=== PATIENT | female | born 1940 | race Two or more races ===

== ENCOUNTER 2024-01-14 03:03 | Observation (INO) | payer MEDICARE, BC ==
--- NOTE | 2024-01-14 03:34 | ED ---
General Adult HPI - General Chief complaint: Neuro Symptoms/Deficit Stated complaint: TIA Time Seen by Provider: 01/14/24 03:10 Source: patient, EMS, RN notes reviewed, old records reviewed Limitations: no limitations - History of Present Illness Initial comments: Patient is an 83-year-old female who presents emergency department as a transfer from [facility] for neuro eval for TIA. Has a history of hypertension, hypothyroidism, hyperlipidemia, anxiety. Had an episode at approximately 8 PM last night which lasted for approximately 10 to 15 minutes. She was sitting at a computer and began having a strange feeling on the right side of her body. She stood up at that time began to walk but had some right- sided weakness and ended up falling to the floor next to her bed. She had a hard time standing up and around during this episode. States she felt in both her leg and her arm. EMS was called. Symptoms resolved by the time EMS arrived. Denies any other acute complaints or issues. Presents for further evaluation. Patient was worked up at [facility] and labs returned unremarkable. CT brain showed no obvious acute ischemic process. Physician at [place] recommended transfer for neurology evaluation over concern for TIA. Patient has not had recurrence of symptoms. Has no other acute complaints. Presents for further evaluation at this time. - Related Data Allergies Allergy/AdvReac Type Severity Reaction Status Date / Time No Known Allergies Allergy Verified 01/14/24 03:53 Review of Systems ROS Statement: Those systems with pertinent positive or pertinent negative responses have been documented in the HPI. Review of Systems: CONST: Denies fever EYES: Denies blurry vision ENT: Denies nasal congestion C/V: Denies Chest pain RESP: Denies shortness of breath GI: Denies abdominal pain : Denies dysuria SKIN: Denies rash. MSK: Denies joint pain. NEURO: Denies headache ROS Other: All systems not noted in ROS Statement are negative. General Exam - General Exam Comments Initial Comments: General: Appears in no acute distress. HEAD: Normal with no signs of head trauma. EYES: PERRLA, EOMI, conjunctiva normal, no discharge. Pupils are 3 mm and equal bilaterally. ENT: Hearing grossly intact, normal oropharynx. RESPIRATORY: Clear breath sounds bilaterally. No wheezes, rales, or rhonchi. C/V: Regular rate and rhythm. S1 and S2 auscultated, no edema, peripheral pulses 2+ and intact throughout ABD: Abd is soft, nontender, nondistended EXT: Normal range of motion, no obvious deformity SKIN: No rashes or lesions observed on exposed skin. NEURO: Alert and oriented x 4. Cranial nerves II-XII intact. No focal sensory or strength deficits. NIH is 0. GCS 15. Limitations: no limitations Course Vital Signs 01/14/24 03:13 Temperature 97.7 F Pulse Rate 72 Respiratory 18 Rate Blood Pressure 124/76 O2 Sat by Pulse 95 Oximetry Medical Decision Making - Medical Decision Making Was pt. sent in by a medical professional or institution (, PA, ELECTROLYTIC ETCHER, urgent care, hospital, or intermediate...) When possible be specific @ -Transferred from [facility] for neurology evaluation over concern for TIA. Did you speak to anyone other than the patient for history (EMS, parent, family, police, friend...)? What history was obtained from this source @ -No Did you review nursing and triage notes (agree or disagree)? Why? @ -I reviewed and agree with nursing and triage notes Were old charts reviewed (outside hosp., previous admission, EMS record, old EKG, old radiological studies, urgent care reports/EKG's, intermediate records)? Report findings @ -Reviewed [facility] chart including labs and CT results which showed unremarkable workup at the outside facility. Differential Diagnosis (chest pain, altered mental status, abdominal pain women, abdominal pain men, vaginal bleeding, weakness, fever, dyspnea, syncope, headache, dizziness, GI bleed, back pain, seizure, CVA, palpatations, mental health, musculoskeletal)? @ -Differential CVA Ischemic stroke, hemorrhagic stroke, brain tumor, atypical migraine, Wernicke's encephalopathy, seizure, multiple sclerosis, meningitis, encephalitis, hypog lycemia, Guillain-Pisano, electrolytes disturbance, myasthenia gravis.... This is not meant to be an all-inclusive list EKG interpreted by me (3pts min.). @ -As above X-rays interpreted by me (1pt min.). @ -None done CT interpreted by me (1pt min.). @ -None done. Already completed by [facility]. U/S interpreted by me (1pt. min.). @ -None done What testing was considered but not performed or refused? (CT, X-rays, U/S, labs)? Why? @ -Considered CT however already completed by [facility]. What meds were considered but not given or refused? Why? @ -Considered administering aspirin however patient already received from [facility] prior to transfer. Did you discuss the management of the patient with other professionals (professionals i.e. , PA, ELECTROLYTIC ETCHER, lab, RT, psych nurse, director of social media marketing, maturity checker, teacher, correction officer reformatory, rn field case manager)? Give summary @ -I spoke with admitting team [facility] who accepted the admission. Was smoking cessation discussed for >3mins.? @ -No Was critical care preformed (if so, how long)? @ -No Were there social determinants of health that impacted care today? How? (Homelessness, low income, unemployed, alcoholism, drug addiction, transportation, low edu. Level, literacy, decrease access to med. care, fpc, rehab)? @ -No Was there de-escalation of care discussed even if they declined (Discuss DNR or withdrawal of care, Hospice)? DNR status @ -No What co-morbidities impacted this encounter? (DM, HTN, Smoking, COPD, CAD, Cancer, CVA, ARF, Chemo, Hep., AIDS, mental health diagnosis, sleep apnea, morbid obesity)? @ -None Was patient admitted / discharged? Hospital course, mention meds given and route, prescriptions, significant lab abnormalities, going to OR and other pertinent info. @ -Patient presents for TIAs evaluation. Had right-sided weakness at home with a low risk fall with no obvious injuries. Symptoms resolved by the time EMS arrived. Workup at [facility] unremarkable. NIH remains 0. Did not receive thrombolytic therapy as patient is not a candidate due to low NIH and risks for outweigh the benefits. She was transferred here for neurology evaluation. She already received aspirin. Will repeat laboratory studies and admit the patient to observation telemetry. Patient was in agreement this plan. NIH remains 0 at this time. She is resting comfortably. Vital signs are within acceptable limits. Repeat labs returned unremarkable including undetectable troponin. EKG showed no signs of acute ischemia. Patient will be admitted at this time. I spoke with the admitting physician, [facility] who accepted the admission. Neurology consulted. Undiagnosed new problem with uncertain prognosis? @ -No Drug Therapy requiring intensive monitoring for toxicity (Heparin, Nitro, Insu daryl, Cardizem)? @ -No Were any procedures done? @ -No Diagnosis/symptom? @ -TIA Acute, or Chronic, or Acute on Chronic? @ -Acute Uncomplicated (without systemic symptoms) or Complicated (systemic symptoms)? @ -Complicated Side effects of treatment? @ -No Exacerbation, Progression, or Severe Exacerbation? @ -No Poses a threat to life or bodily function? How? (Chest pain, USA, RI, pneumonia, PE, COPD, DKA, ARF, appy, cholecystitis, CVA, Diverticulitis, Homicidal, Suicidal, threat to staff... and all critical care pts) @ -Possibly, yes - Lab Data Result diagrams: 01/14/24 03:22 01/14/24 03:22 Lab Results 01/14/24 01/14/24 01/14/24 Range/Units 03:22 03:22 03:22 WBC 9.3 (3.8-10.6) k/uL RBC 5.09 (3.80-5.40) m/uL Hgb 15.2 (11.4-16.0) gm/dL Hct 45.0 (34.0-46.0) % MCV 88.3 (80.0-100.0) fL MCH 29.9 (25.0-35.0) pg MCHC 33.8 (31.0-37.0) g/dL RDW 13.6 (11.5-15.5) % Plt Count 206 (150-450) k/uL MPV 7.3 Neutrophils % 73 % Lymphocytes % 20 % Monocytes % 5 % Eosinophils % 1 % Basophils % 0 % Neutrophils # 6.8 (1.3-7.7) k/uL Lymphocytes # 1.8 (1.0-4.8) k/uL Monocytes # 0.5 (0-1.0) k/uL Eosinophils # 0.1 (0-0.7) k/uL Basophils # 0.0 (0-0.2) k/uL PT 10.7 (10.0-12.5) sec INR 1.0 (<1.2) APTT 28.1 (22.0-30.0) sec Sodium 135 L (137-145) mmol/L Potassium 4.2 (3.5-5.1) mmol/L Chloride 105 (98-107) mmol/L Carbon Dioxide 26 (22-30) mmol/L Anion Gap 4 mmol/L BUN 21 H (7-17) mg/dL Creatinine 0.58 (0.52-1.04) mg/dL Est GFR (CKD-EPI)AfAm >90 (>60 ml/min/1.73 sqM) Est GFR (CKD-EPI)NonAf 87 (>60 ml/min/1.73 sqM) Glucose 116 H (74-99) mg/dL Calcium 9.8 (8.4-10.2) mg/dL Total Bilirubin 0.6 (0.2-1.3) mg/dL AST 28 (14-36) U/L ALT 22 (4-34) U/L Alkaline Phosphatase 111 (38-126) U/L Creatine Kinase 44 (30-135) U/L Troponin I (0.000-0.034) ng/mL Total Protein 7.0 (6.3-8.2) g/dL Albumin 4.1 (3.5-5.0) g/dL 01/14/24 Range/Units 03:22 WBC (3.8-10.6) k/uL RBC (3.80-5.40) m/uL Hgb (11.4-16.0) gm/dL Hct (34.0-46.0) % MCV (80.0-100.0) fL MCH (25.0-35.0) pg MCHC (31.0-37.0) g/dL RDW (11.5-15.5) % Plt Count (150-450) k/uL MPV Neutrophils % % Lymphocytes % % Monocytes % % Eosinophils % % Basophils % % Neutrophils # (1.3-7.7) k/uL Lymphocytes # (1.0-4.8) k/uL Monocytes # (0-1.0) k/uL Eosinophils # (0-0.7) k/uL Basophils # (0-0.2) k/uL PT (10.0-12.5) sec INR (<1.2) APTT (22.0-30.0) sec Sodium (137-145) mmol/L Potassium (3.5-5.1) mmol/L Chloride (98-107) mmol/L Carbon Dioxide (22-30) mmol/L Anion Gap mmol/L BUN (7-17) mg/dL Creatinine (0.52-1.04) mg/dL Est GFR (CKD-EPI)AfAm (>60 ml/min/1.73 sqM) Est GFR (CKD-EPI)NonAf (>60 ml/min/1.73 sqM) Glucose (74-99) mg/dL Calcium (8.4-10.2) mg/dL Total Bilirubin (0.2-1.3) mg/dL AST (14-36) U/L ALT (4-34) U/L Alkaline Phosphatase (38-126) U/L Creatine Kinase (30-135) U/L Troponin I <0.012 (0.000-0.034) ng/mL Total Protein (6.3-8.2) g/dL Albumin (3.5-5.0) g/dL - EKG Data -: EKG Interpreted by Me EKG Comments: 12-lead Electrocardiogram Interpretation Note EKG was reviewed and interpreted by myself. 12-lead ECG performed at 0339 is interpreted by me as revealing normal sinus rhythm at a rate of 66 beats per minute. [place] is normal. NC interval is 171 ms, QRS is 75 ms, QTc is 442 ms.. There were no ST or T wave abnormalities to suggest myocardial ischemia or injury. R wave progression across the precordium was satisfactory. By my interpretation this EKG is non-diagnostic for acute ischemia. Disposition Clinical Impression: TIA (transient ischemic attack) Disposition: ADMITTED IP TO THIS HOSP Condition: Stable Time of Disposition: 03:33
[2024-01-14 03:35] LABS: Glucose,Whole Blood 112 mg/dL (70-110)
[2024-01-14] MEDS: ONDANSETRON 4 MG/2 ML VIAL IVP STA (03:54)
[2024-01-14] MEDS: SODIUM CHLORIDE 0.9% 1,000 ML IV STA (03:57)
[2024-01-14 04:11] LABS: Partial Thromboplastin Time 28.1 sec (22.0-30.0); Prothrombin Time 10.7 sec (10.0-12.5)
[2024-01-14 04:12] LABS: Basophils % (A) 0 %; Eosinophils # (A) 0.1 k/uL (0-0.7); Eosinophils % (A) 1 %; HGB 15.2 gm/dL (11.4-16.0); Lymphocytes # (A) 1.8 k/uL (1.0-4.8); Lymphocytes % (A) 20 %; MCH 29.9 pg (25.0-35.0); MCHC 33.8 g/dL (31.0-37.0); MCV 88.3 fL (80.0-100.0); Mean Platelet Volume 7.3; Monocytes # (A) 0.5 k/uL (0-1.0); Monocytes % (A) 5 %; Neutrophils # (A) 6.8 k/uL (1.3-7.7); Neutrophils % (A) 73 %; Platelet Count 206 k/uL (150-450); RBC 5.09 m/uL (3.80-5.40); RDW 13.6 % (11.5-15.5); WBC 9.3 k/uL (3.8-10.6)
[2024-01-14 04:20] LABS: ALT 22 U/L (4-34); AST 28 U/L (14-36); African American GFR (CKD) >90 (>60 ml/min/1.73 sqM); Albumin 4.1 g/dL (3.5-5.0); Alkaline Phosphatase 111 U/L (38-126); Anion Gap 4 mmol/L; Blood Urea Nitrogen 21 mg/dL (7-17); Calcium 9.8 mg/dL (8.4-10.2); Carbon Dioxide 26 mmol/L (22-30); Chloride 105 mmol/L (98-107); Creatine Kinase 44 U/L (30-135); Glucose 116 mg/dL (74-99); Non-African American GFR(CKD) 87 (>60 ml/min/1.73 sqM); Potassium 4.2 mmol/L (3.5-5.1); Sodium 135 mmol/L (137-145); Total Bilirubin 0.6 mg/dL (0.2-1.3)
--- NOTE | 2024-01-14 09:21 | P.HPIM ---
History of Present Illness This is a pleasant 83 years old female with past medical history of multiple medical problems Patient presents because of right leg and arm problems Yesterday after Zoom meeting about 8 PM she started feeling funny in her right arm and right leg, she wanted to go to bed then to relax, she could walk little bit and then she fell on the ground with no head trauma no syncope, then and neighbor tried to help her with no benefit so they called the ambulance. During the fall he had bowel movement on her. But she denies any urinary complaint. She denies chest pain dyspnea or coughing no abdominal pain or vomiting. Patient she states she has soft bowel movement about 3 times yesterday which is unusual for her. Patient states she was on aspirin 81 mg at home Review of the records from [facility] Sodium 139, potassium 4.2, ALT T24 and AST 27, bili Jimi 0.4 Calcium 10.4 Creatinine 0.8 with GFR of 76. Glucose 99. Troponin is less than 0.05. INR 1.0. WBC 8.1, hemoglobin 15.3 and platelet count 121 There is report of CT of the brain without contrast showing no acute intracranial abnormality with generalized white matter atrophy No images done today Lab for this facility showing unremarkable CBC, INR, BMP and liver enzymes and troponin. Review of Systems Review of systems CONSTITUTIONAL: No fever, no malaise, no fatigue. HEENT: No recent visual problems or hearing problems. Denied any sore throat. CARDIOVASCULAR: No orthopnea, PND, no palpitations, no syncope. PULMONARY: No shortness of breath, no cough, no hemoptysis. GASTROINTESTINAL: No diarrhea, no nausea, no vomiting, no abdominal pain. Normoactive bowel sounds. NEUROLOGICAL: No headaches, no weakness, no numbness. HEMATOLOGICAL: Denies any bleeding or petechiae. GENITOURINARY: Denies any burning micturition, frequency, or urgency. MUSCULOSKELETAL/RHEUMATOLOGICAL: Denies any joint pain, swelling, or any muscle pain. ENDOCRINE: Denies any polyuria or polydipsia. Medications and Allergies Home Medications Medication Instructions Recorded Confirmed Type ALPRAZolam [Xanax] 0.25 mg PO QID PRN 01/14/24 01/14/24 History Aspirin 81 mg PO HS 01/14/24 01/14/24 History Biotin 5 mg PO DAILY 01/14/24 01/14/24 History Calcium Carbonate/Vitamin D3 1 tab PO DAILY 01/14/24 01/14/24 History [Calcium 600-Vit D3 10 mcg (400 Iu)] Cephalexin [Keflex] 1,000 mg PO BID PRN 01/14/24 01/14/24 History Cholecalciferol [Vitamin D3 (25 25 mcg PO DAILY 01/14/24 01/14/24 History Mcg = 1000 Iu)] Cinnamon Bark [Cinnamon] 1,000 mg PO DAILY 01/14/24 01/14/24 History Co Q-10 100mg 100 mg PO DAILY 01/14/24 01/14/24 History Cranberry Fruit Extract [Cranberry] 500 mg PO DAILY 01/14/24 01/14/24 History DULoxetine HCL [Cymbalta] 30 mg PO DAILY 01/14/24 01/14/24 History DULoxetine HCL [Cymbalta] 60 mg PO HS 01/14/24 01/14/24 History Alesha/Theanine/Ashwagandha Xt [Alesha 1 cap PO HS 01/14/24 01/14/24 History Soothe Capsule] Glucosam/Puneet-Msm1/C/Eric/Bosw 1 tab PO DAILY 01/14/24 01/14/24 History [Pzoybfbpqxj-Tiqfpjmebwf-EEF Tb] K2 50 mcg PO HS 01/14/24 01/14/24 History Levothyroxine Sodium [Synthroid] 125 mcg PO HS 01/14/24 01/14/24 History Losartan [Cozaar] 25 mg PO HS 01/14/24 01/14/24 History Magnesium Oil 1 applic TOPICAL HS 01/14/24 01/14/24 History Multivit-Min/Iron/Folic/Lutein 1 tab PO DAILY 01/14/24 01/14/24 History [Centrum Silver Women Tablet] Mentone-3/Dha/Epa/Fish Oil [Fish Oil 1 cap PO HS 01/14/24 01/14/24 History 1,000 mg Softgel] Psyllium Husk (with Sugar) 6 gm PO PC-SUPPER 01/14/24 01/14/24 History [Metamucil Powder] Selenium 200 mcg PO DAILY 01/14/24 01/14/24 History Turmeric Root Extract [Turmeric 500 mg PO DAILY 01/14/24 01/14/24 History Curcumin] atenoloL [Tenormin] 50 mg PO DAILY 01/14/24 01/14/24 History hydroCHLOROthiazide 12.5 mg PO DAILY 01/14/24 01/14/24 History Allergies Allergy/AdvReac Type Severity Reaction Status Date / Time No Known Allergies Allergy Verified 01/14/24 08:28 Physical Exam Vitals: Vital Signs Temp Pulse Resp BP Pulse Ox 01/14/24 06:46 67 18 124/79 95 01/14/24 03:13 97.7 F 72 18 124/76 95 Intake and Output 01/13/24 01/14/24 01/14/24 22:59 06:59 14:59 Other: Weight 83.461 kg GENERAL: The patient is alert and oriented x3, not in any acute distress. Well developed, well nourished. HEENT: Pupils are round and equally reacting to light. EOMI. No scleral icterus. No conjunctival pallor. Normocephalic, atraumatic. No pharyngeal erythema. No thyromegaly. CARDIOVASCULAR: S1 and S2 present. No murmurs, rubs, or gallops. PULMONARY: Chest is clear to auscultation, no wheezing , no crackles. ABDOMEN: Soft, nontender, nondistended, normoactive bowel sounds. No palpable organomegaly. MUSCULOSKELETAL: No joint swelling or deformity. EXTREMITIES: No cyanosis, clubbing, or pedal edema. NEUROLOGICAL: Gross neurological examination did not reveal any focal deficits. SKIN: No rashes. no petechiae. Results CBC & Chem 7: 01/14/24 03:22 01/14/24 03:22 Labs: Abnormal Lab Results - Last 24 Hours (Table) 01/14/24 01/14/24 Range/Units 03:22 03:33 Sodium 135 L (137-145) mmol/L BUN 21 H (7-17) mg/dL Glucose 116 H (74-99) mg/dL POC Glucose (mg/dL) 112 H (70-110) mg/dL Assessment and Plan Plan: Continue with antibiotic currently patient started with IV vancomycin. Follow-up culture results which was obtained in emergency room Infectious disease consult already on the case Continue with gentle hydration and give a bolus of 500 cc Check ultrasound of the left leg Labs and medication were reviewed.. Continue same treatment. Continue with symptomatic treatment. Resume home medication. Monitor labs and vitals. DVT and GI prophylaxis. Further recommendations as per clinical course of the patient DVT prophylaxis: Subcutaneous heparin GI Prophylaxis: Pepcid PT/OT: Pending Prognosis is guarded
[2024-01-14] MEDS: CLOPIDOGREL 75 MG TAB PO SCH (19:03)
[2024-01-14] MEDS: LOSARTAN 25 MG TAB PO SCH (21:46)
[2024-01-14] MEDS: ASPIRIN 81 MG PO SCH (21:46)
[2024-01-14] MEDS: DULoxetine HCL 60 MG CAPSULE.DR PO SCH (21:46)
[2024-01-14] MEDS: LEVOTHYROXINE 125 MCG TAB PO SCH (23:38)
[2024-01-15 08:40] LABS: LDL Cholesterol,Calculated 168.4 mg/dL (0.0-131.0); VLDL Calculation 15.42 mg/dL (5.00-40.00)
--- NOTE | 2024-01-15 09:04 | US ---
EXAMINATION TYPE: US carotid duplex BILAT DATE OF EXAM: 01/14/2024 COMPARISON: NONE CLINICAL INDICATION: Female, 83 years old with history of TIA; TIA TECHNIQUE: Carotid duplex ultrasound examination. Indirect Doppler criteria was utilized. FINDINGS: EXAM MEASUREMENTS: RIGHT: Peak Systolic Velocity (PSV) cm/sec ----- Right CCA: 47.0 ----- Right ICA: 73.2 ----- Right ECA: 77.6 ICA/CCA ratio: 1.6 RIGHT: End Diastole cm/sec ----- Right CCA: 9.5 ----- Right ICA: 13.8 ----- Right ECA: 6.2 LEFT: Peak Systolic Velocity (PSV) cm/sec ----- Left CCA: 59.8 ----- Left ICA: 60.7 ----- Left ECA: 68.8 ICA/CCA ratio: 1.0 LEFT: End Diastole cm/sec ----- Left CCA: 8.4 ----- Left ICA: 12.7 ----- Left ECA: 6.2 VERTEBRALS (direction of flow): Right Vertebral: Antegrade Left Vertebral: Antegrade Rhythm: Normal BILINGUAL SOCIAL WORKER NOTES: No plaque or elevated velocities seen. IMPRESSION: Less than 50% stenosis of the bilateral carotid bifurcations. Criteria for Assigning % of Stenosis / Diameter reduction (Estimation based on the indirect measurements of the internal carotid artery velocities (ICA PSV). 1. Normal (no stenosis)=ICA PSV < 125 cm/s: ratio < 2.0: ICA EDV<40 cm/s. 2. Less than 50% stenosis=ICA PSV < 125 cm/s: ratio < 2.0: ICA EDV<40 cm/s. 3. 50 to 69% stenosis=ICA PSV of 125 to 230 cm/s: ration 2.0 ? 4.0: ICA EDV 40-100 cm/s. 4. Greater than 70% stenosis to near occlusion= ICA PSV > 230 cm/s: ratio > 4.0: ICA EDV > 100 cm/s. 5. Near occlusion= ICA PSV velocities may be low or undetectable: variable ratio and ICA EDV. 6. Total occlusion=unable to detect flow.
[2024-01-15] MEDS: CALCIUM CARB-VIT D 500 MG-5 MCG TAB PO SCH (09:43)
[2024-01-15] MEDS: CHOLECALCIFEROL 25 MCG (1000 IU) TABLET PO SCH (09:43)
[2024-01-15] MEDS: atenoloL 50 MG TAB PO SCH (09:43)
[2024-01-15] MEDS: hydroCHLOROthiazide 12.5 MG CAP PO SCH (09:43)
[2024-01-15] MEDS: NON FORMULARY DRUG (Biotin [Biotin] 5 MG Capsule) PO SCH (10:09)
[2024-01-15] MEDS: ALPRAZolam 0.25 MG TAB PO PRN (10:53)
[2024-01-15] MEDS: DULoxetine HCL 30 MG CAPSULE.DR PO SCH (10:53)
--- NOTE | 2024-01-15 11:50 | P.CNNES ---
History of Present Illness Consult date: 01/14/24 Requesting physician: Bridger Mcdowell Reason for Consult: TIA History of Present Illness: Patient is a 83-year-old right-handed female with history of hypertension came to the hospital as a transfer from [facility] by ambulance early this morning today at 3:03 AM for TIA. Patient and her were present, who provided the history. Patient mentions that she attended a Zoom meeting from 7 to 8 PM the night prior. She was sitting at the computer, and after she was done with the meeting at 8 PM, felt weird feeling in the right side mainly the right leg but possibly the right arm as well but not including the face. She wanted to lay in the bed. She walked a little then her right leg started to crumble and she could not do anything with the right leg and she fell on the floor. Did not hit her head. There were no other symptoms like slurred speech facial droop or visual problem. Called the EMS. By the time EMS arrived, all symptoms have resolved. Overall the symptoms lasted for only 10 minutes. Patient denies any previous history of strokes or TIA. Review of records from [facility]: EKG shows sinus rhythm probable left atrial enlargement. LVH. CMP normal including liver and renal functions. Troponin negative. PTT 32.1. INR 1.0 CBC is normal with hemoglobin 15.3, platelets 191. CT head without contrast revealed no acute intracranial abnormality. Generalized white matter atrophy. Patient was transferred to [facility]. Vital signs on arrival blood pressure 124/76, pulse 72 temperature 97.7. Blood test shows normal CBC, PT PTT, normal potassium, sodium 135, renal functions are normal. Hepatic panel is normal. Troponin negative. CK normal. EKG shows normal sinus rhythm. Home medications include aspirin 81 mg, Xanax 0.25 mg 4 times daily as needed Cymbalta 30 mg in the morning and 60 mg at night, vitamin D, atenolol, HCTZ, losartan. At present she has no symptoms. Her NIH stroke scale is 0. Patient was not a candidate for tPA, as her symptoms have resolved by the time she came to the ER. Patient has history of hypertension but denies diabetes. She has never smoked, does not drink. She has been taking aspirin 81 mg daily for almost 10 years, compliant. Patient used to be on pravastatin for a long time, quit taking it 2 months ago. Review of Systems Constitutional: Denies chills, Denies fever Eyes: denies blurred vision, denies bulging eye, denies decreased vision, denies pain Ears: deny: decreased hearing, ear discharge Ears, nose, mouth and throat: Denies headache, Denies sore throat, Denies vertigo Cardiovascular: Denies chest pain, Denies lightheadedness, Denies shortness of breath Respiratory: Denies cough, Denies excessive sputum Gastrointestinal: Reports diarrhea, Denies abdominal pain, Denies nausea, Denies vomiting Genitourinary: Reports mixed incontinence, Denies dysuria Musculoskeletal: Reports low back pain (Sometimes with exercises. No pain yesterday.), Denies neck pain Integumentary: Denies pruritus, Denies rash Neurological: Reports as per HPI Psychiatric: Reports anxiety, Reports depression Hematologic/Lymphatic: Denies easy bleeding, Denies easy bruising Medications and Allergies Home Medications Medication Instructions Recorded Confirmed Type ALPRAZolam [Xanax] 0.25 mg PO QID PRN 01/14/24 01/14/24 History Aspirin 81 mg PO HS 01/14/24 01/14/24 History Biotin 5 mg PO DAILY 01/14/24 01/14/24 History Calcium Carbonate/Vitamin D3 1 tab PO DAILY 01/14/24 01/14/24 History [Calcium 600-Vit D3 10 mcg (400 Iu)] Cephalexin [Keflex] 1,000 mg PO BID PRN 01/14/24 01/14/24 History Cholecalciferol [Vitamin D3 (25 25 mcg PO DAILY 01/14/24 01/14/24 History Mcg = 1000 Iu)] Cinnamon Bark [Cinnamon] 1,000 mg PO DAILY 01/14/24 01/14/24 History Co Q-10 100mg 100 mg PO DAILY 01/14/24 01/14/24 History Cranberry Fruit Extract [Cranberry] 500 mg PO DAILY 01/14/24 01/14/24 History DULoxetine HCL [Cymbalta] 30 mg PO DAILY 01/14/24 01/14/24 History DULoxetine HCL [Cymbalta] 60 mg PO HS 01/14/24 01/14/24 History Alesha/Theanine/Ashwagandha Xt [Alesha 1 cap PO HS 01/14/24 01/14/24 History Soothe Capsule] Glucosam/Puneet-Msm1/C/Eric/Bosw 1 tab PO DAILY 01/14/24 01/14/24 History [Yshoykpqrrh-Cncmzjwpvbz-CGE Tb] K2 50 mcg PO HS 01/14/24 01/14/24 History Levothyroxine Sodium [Synthroid] 125 mcg PO HS 01/14/24 01/14/24 History Losartan [Cozaar] 25 mg PO HS 01/14/24 01/14/24 History Magnesium Oil 1 applic TOPICAL HS 01/14/24 01/14/24 History Multivit-Min/Iron/Folic/Lutein 1 tab PO DAILY 01/14/24 01/14/24 History [Centrum Silver Women Tablet] [place]-3/Dha/Epa/Fish Oil [Fish Oil 1 cap PO HS 01/14/24 01/14/24 History 1,000 mg Softgel] Psyllium Husk (with Sugar) 6 gm PO PC-SUPPER 01/14/24 01/14/24 History [Metamucil Powder] Selenium 200 mcg PO DAILY 01/14/24 01/14/24 History Turmeric Root Extract [Turmeric 500 mg PO DAILY 01/14/24 01/14/24 History Curcumin] atenoloL [Tenormin] 50 mg PO DAILY 01/14/24 01/14/24 History hydroCHLOROthiazide 12.5 mg PO DAILY 01/14/24 01/14/24 History Allergies Allergy/AdvReac Type Severity Reaction Status Date / Time No Known Allergies Allergy Verified 01/14/24 08:28 Physical Examination - Vital Signs Vital Signs: Vital Signs Temp Pulse Resp BP Pulse Ox 01/14/24 14:09 98.1 F 66 18 144/73 94 L 01/14/24 06:46 67 18 124/79 95 01/14/24 03:13 97.7 F 72 18 124/76 95 Intake and Output 01/14/24 01/14/24 01/14/24 06:59 14:59 22:59 Other: Weight 83.461 kg Patient is an elderly female, very pleasant, in no acute distress. Patient is alert awake oriented to time place and person. Speech and language functions are normal. Patient can name and repeat very well. No aphasia or dysarthria. Attention, concentration and fund of knowledge is adequate. On cranial nerve examination, pupils are equal, round and reacting to light, visual manning are full on confrontation, with no neglect on double simultaneous stimulation. Extraocular muscles are intact with no nystagmus. Face is symmetric, tongue protrudes to the midline. Palatal elevation and sensation normal, hearing and shoulder shrug normal, facial sensation normal. On muscle strength testing, there is no pronator drift and the strength is normal in arms and legs distally and proximally. Deep tendon reflexes are symmetric 1+ to 2 and plantars downgoing. Sensory to touch is equal with no neglect on double simultaneous stimulation. Cerebellar function showed no ataxia for mvuwqe-pk-okjv testing. No dysdiadochokinesia. No ataxia for nhuy-kf-lqtm testing on either side. Tone and bulk of muscles normal. Gait deferred.. On general examination, there is no carotid bruit or murmur, S1-S2 audible. Chest is clear on consultation. Abdomen is soft nontender. No organomegaly, bowel sounds present. Peripheral pulses are present. No peripheral edema. Results - Laboratory Findings CBC and BMP: 01/14/24 03:22 01/14/24 03:22 Abnormal Lab Findings: Abnormal Labs 01/14/24 01/14/24 03:22 03:33 Sodium 135 L BUN 21 H Glucose 116 H POC Glucose (mg/dL) 112 H Assessment and Plan Assessment: * Probable TIA manifesting with right leg more than right arm weakness, and the symptoms resolved within 10 minutes. At present patient has no symptoms. NIH stroke scale 0. Patient was not a candidate for tPA. * Hypertension * Hyperlipidemia Plan: Patient had a low risk TIA, with ABCD2 score of 3. Patient will undergo TIA workup. Carotid Doppler, rule out stenosis 2D echo with bubble study, rule out PFO or other embolic source. Fasting a.m. lipid panel. Patient stopped taking pravastatin 2 months ago. Probably may have to resume. Hemoglobin A1c Patient's blood pressure is well-controlled. Continue atenolol and losartan. Patient has been taking aspirin 81 mg daily for a number of years. We will add Plavix 75 mg for now. Neuro checks every 4 hours. Telemetry monitoring rule out any arrhythmia PT, OT, speech therapy DVT prophylaxis: Patient is ambulatory. No indication for MRI, as patient had a low risk TIA, and symptoms had completely resolved. Yield is extremely low. Neurology will continue to follow. Thank you for the consult.
[2024-01-15 14:19] VITALS: BP 122/69; PULSE 64; RESP 15; TEMP 98.1
--- NOTE | 2024-01-15 17:04 | CA ---
Transthoracic Echo Report Name: Natty Ch Age: 83 Gender: F : 1940 Exam Date: 01/15/2024 15:31 Exam Location: [place] [facility] Ht (in): 66 Wt (lb): 184 Ordering Physician: Mckayla Qureshi MD Attending/Referring Phys: Fusion Juncture Grinder Tawnya Lam RDCS Procedure CPT: Indications: tia Cardiac Hx: Technical Quality: Good Contrast 1: Total Dose (mL): Contrast 2: Total Dose (mL): MEASUREMENTS (Male / Female) Normal Values 2D ECHO LV Diastolic Diameter PLAX 3.7 cm 4.2 - 5.9 / 3.9 - 5.3 cm LV Systolic Diameter PLAX 2.5 cm IVS Diastolic Thickness 1.1 cm 0.6 - 1.0 / 0.6 - 0.9 cm LVPW Diastolic Thickness 0.9 cm 0.6 - 1.0 / 0.6 - 0.9 cm LV Relative Wall Thickness 0.5 RV Internal Dim ED PLAX 3.1 cm LA Systolic Diameter LX 3.3 cm 3.0 - 4.0 / 2.7 - 3.8 cm LV Diastolic Volume MOD 4C 72.7 cm??? LV Systolic Volume MOD 4C 26.3 cm??? LV Ejection Fraction MOD 4C 63.8 % LV Cardiac Index MOD 4C 1510.6 cm???/min???m??? LV Diastolic Length 4C 6.9 cm LV Systolic Length 4C 5.4 cm LV Diastolic Volume MOD 2C 89.4 cm??? LV Systolic Volume MOD 2C 34.9 cm??? LV Ejection Fraction MOD 2C 61.0 % LV Cardiac Index MOD 2C 1777.6 cm???/min???m??? LV Diastolic Length 2C 7.4 cm LV Systolic Length 2C 6.0 cm LA Volume 39.9 cm??? 18 - 58 / 22 - 52 cm??? LA Volume Index 20.0 cm???/m??? 16 - 28 cm???/m??? M-MODE Aortic Root Diameter MM 3.2 cm AV Cusp Separation MM 2.1 cm DOPPLER MV Area PHT 1.9 cm??? Mitral E Point Velocity 53.5 cm/s Mitral A Point Velocity 63.2 cm/s Mitral E to A Ratio 0.8 MV Deceleration Time 407.3 ms TR Peak Velocity 251.3 cm/s TR Peak Gradient 25.3 mmHg Right Ventricular Systolic Press 29.7 mmHg FINDINGS Left Ventricle Left ventricular ejection fraction is estimated at 60-65 %. Small left ventricular cavity. Mildly increased septal wall thickness. No obvious regional wall motion abnormality. Right Ventricle RV appears mildly dilated with normal systolic. Right ventricular systolic pressure within normal limits. Right Atrium Normal right atrial size. Negative agitated saline bubble study for right to left shunt. Left Atrium Normal left atrial size. No left atrial thrombus or mass present. Mitral Valve Structurally normal mitral valve. No mitral stenosis, regurgitation or prolapse. Aortic Valve Trileaflet aortic valve. Mild aortic regurgitation. Tricuspid Valve Structurally normal tricuspid valve. Mild tricuspid regurgitation. Pulmonic Valve Pulmonic valve not well visualized. No pulmonic regurgitation. Pericardium No pericardial effusion. No pleural effusion. Aorta Normal size aortic root and proximal ascending aorta. CONCLUSIONS LVEF 60 to 65% Mild concentric LVH. No obvious regional wall motion abnormality Mild RV dilatation with normal systolic function. Normal RVSP No right to left shunting on bubble study noticed No significant valvular dysfunction other than mild aortic regurgitation Previewed by: Dr Danilo Roberson (Electronically Signed) Final Date: 15 January 2024 17:03
--- NOTE | 2024-01-15 18:19 | P.PN ---
Subjective Progress Note Date: 01/15/24 Patient was seen for a follow-up. Patient's was also present today. No new symptoms. She is feeling fine. Objective - Vital Signs Vital signs: Vital Signs Temp 98.1 F 01/15/24 14:18 Pulse 64 01/15/24 14:18 Resp 15 01/15/24 14:18 BP 122/69 01/15/24 14:18 Pulse Ox 92 L 01/15/24 14:18 FiO2 Intake & Output 01/14/24 01/15/24 01/15/24 18:59 06:59 18:59 Weight 83.461 kg Other: # Voids 1 0 - Exam Examination completely nonfocal. Unchanged. - Labs CBC & Chem 7: 01/14/24 03:22 01/14/24 03:22 Labs: Abnormal Lab Results - Last 24 Hours (Table) 01/14/24 Range/Units 21:54 Cholesterol 245.00 H (0.00-200.00) mg/dL LDL Cholesterol, Calc 168.4 H (0.0-131.0) mg/dL HDL Cholesterol 61.20 H (40.00-60.00) mg/dL Assessment and Plan Assessment: * Probable TIA manifesting with right leg more than right arm weakness, and the symptoms resolved within 10 minutes. At present patient has no symptoms. NIH stroke scale 0. Patient was not a candidate for tPA. * Hypertension * Hyperlipidemia Plan: Patient had a low risk TIA, with ABCD2 score of 3. Patient underwent TIA workup. Carotid Doppler, revealed less than 50% stenosis of bilateral carotid bifurcation. Antegrade flow in both vertebral arteries. 2D echo revealed left ventricular ejection fraction about 60 to 65%. Small left ventricular cavity. Mildly increased septal wall thickness. No obvious regional wall motion abnormality. Left atrial size is normal. Negative agitated saline bubble study for hvfuc-nh-xcgd shunt. Fasting a.m. lipid panel with cholesterol 245, LDL 168, HDL 61, triglycerides 77. Patient stopped taking pravastatin 2 months ago. Probably may have to resume. We will start Lipitor 40 mg daily. Target LDL <70. Hemoglobin A1c 5.8. Patient's blood pressure is well-controlled. Continue atenolol and losartan. Patient has been taking aspirin 81 mg daily for a number of years. We will add Plavix 75 mg for now. Recommend continuing dual antiplatelet medication for 21 days. Thereafter may stop Aspirin and continue Plavix. Telemetry monitoring rule out any arrhythmia DVT prophylaxis: Patient is ambulatory. No indication for MRI, as patient had a low risk TIA, and symptoms had completely resolved. Yield is extremely low. Neurologically clear for discharge. Discussed with primary physician.
[2024-01-15] MEDS ORDERED: ATORVASTATIN 40 MG TAB PO SCH (21:00)
--- NOTE | 2024-01-16 08:33 | P.DS ---
Providers Date of admission: 01/14/24 03:32 Attending physician: Tarsha Wilkins Consults: 01/14/24 03:32 Consult Physician Routine Consulting Provider: Mckayla Qureshi Consult Reason/Comments: TIA Do you want consulting provider notified?: Yes Primary care physician: Ángela Russell MD Hospital Course: Diagnoses: TIA, transient weakness of the right arm and right leg lasted 10 minutes per . Currently completely resolved Anxiety Hypothyroidism Depression, not an active issue Hypertension Obesity with BMI 29.7 Hospital course: This is a pleasant 83 years old female with past medical history of multiple medical problems Patient presents because of right leg and arm problems, minutes lasted for about 10 minutes per at bedside. Currently completely resolved. No headache dizziness or other neurological deficit. Patient evaluated by neurologist. Patient had extensive workup which was unremarkable including his CT of the brain negative for acute process. Echocardiogram showing ejection fraction of 60 to 65%. No significant abnormality. Carotid Doppler showing less than 50% stenosis Patient was started on Lipitor is recommended for hyperlipidemia. Patient was on aspirin 81 mg. Patient is going to be treated with dual antiplatelet therapy with aspirin and Plavix x 3 weeks after that stop aspirin and continue with the Plavix. Patient denies any other symptoms or neurological deficits. Patient is eager to go home today. Neurology service have cleared the patient for discharge. Problems and management plan were discussed with the patient and he verbalized understanding and acceptance Patient was found stable and can be discharged home in guarded prognosis however he needs follow-up as an outpatient. Patient was instructed to follow up with PCP Dr. Nathen Tucker within one week and patient agrees Patient was instructed to follow-up with a neurologist Dr. Wong in 1 to 2 weeks and patient agrees Physical exam Gen: patient is a AAOx3, no distress CVS: S1-S2, RRR, no murmur Lungs: B/L CTA, no wheezing Abdomen: soft, no distention, no tenderness, positive bowel sounds Extremity: no leg edema or induration Time spent more than 35 minutes Patient Condition at Discharge: Stable Plan - Discharge Summary New Discharge Prescriptions: New Atorvastatin [Lipitor] 40 mg PO HS #30 tab Clopidogrel [Plavix] 75 mg PO DAILY #30 tab Continue K2 50 mcg PO HS Psyllium Husk (with Sugar) [Metamucil Powder] 6 gm PO PC-SUPPER [place]-3/Dha/Epa/Fish Oil [Fish Oil 1,000 mg Softgel] 1 cap PO HS Losartan [Cozaar] 25 mg PO HS Levothyroxine Sodium [Synthroid] 125 mcg PO HS Alesha/Theanine/Ashwagandha Xt [Alesha Soothe Capsule] 1 cap PO HS Glucosam/Puneet-Msm1/C/Eric/Bosw [Nseztaackae-Hyvxaeeivec-DUM Tb] 1 tab PO DAILY Selenium 200 mcg PO DAILY Cranberry Fruit Extract [Cranberry] 500 mg PO DAILY Co Q-10 100mg 100 mg PO DAILY hydroCHLOROthiazide 12.5 mg PO DAILY atenoloL [Tenormin] 50 mg PO DAILY Magnesium Oil 1 applic TOPICAL HS Aspirin 81 mg PO HS 21 Days #21 tab Turmeric Root Extract [Turmeric Curcumin] 500 mg PO DAILY Multivit-Min/Iron/Folic/Lutein [Centrum Silver Women Tablet] 1 tab PO DAILY Calcium Carbonate/Vitamin D3 [Calcium 600-Vit D3 10 mcg (400 Iu)] 1 tab PO DAILY Cinnamon Bark [Cinnamon] 1,000 mg PO DAILY Cholecalciferol [Vitamin D3 (25 Mcg = 1000 Iu)] 25 mcg PO DAILY Biotin 5 mg PO DAILY DULoxetine HCL [Cymbalta] 60 mg PO HS DULoxetine HCL [Cymbalta] 30 mg PO DAILY ALPRAZolam [Xanax] 0.25 mg PO QID PRN PRN Reason: Anxiety No Action Cephalexin [Keflex] 1,000 mg PO BID PRN PRN Reason: DENTAL APPTS Discharge Medication List ALPRAZolam [Xanax] 0.25 mg PO QID PRN 01/14/24 [History] Biotin 5 mg PO DAILY 01/14/24 [History] Calcium Carbonate/Vitamin D3 [Calcium 600-Vit D3 10 mcg (400 Iu)] 1 tab PO DAILY 01/14/24 [History] Cephalexin [Keflex] 1,000 mg PO BID PRN 01/14/24 [History] Cholecalciferol [Vitamin D3 (25 Mcg = 1000 Iu)] 25 mcg PO DAILY 01/14/24 [History] Cinnamon Bark [Cinnamon] 1,000 mg PO DAILY 01/14/24 [History] Co Q-10 100mg 100 mg PO DAILY 01/14/24 [History] Cranberry Fruit Extract [Cranberry] 500 mg PO DAILY 01/14/24 [History] DULoxetine HCL [Cymbalta] 30 mg PO DAILY 01/14/24 [History] DULoxetine HCL [Cymbalta] 60 mg PO HS 01/14/24 [History] Alesha/Theanine/Ashwagandha Xt [Alesha Soothe Capsule] 1 cap PO HS 01/14/24 [History] Glucosam/Puneet-Msm1/C/Eric/Bosw [Lwasjpvwgxs-Zxvvmrjydqa-QXE Tb] 1 tab PO DAILY 01/14/24 [History] K2 50 mcg PO HS 01/14/24 [History] Levothyroxine Sodium [Synthroid] 125 mcg PO HS 01/14/24 [History] Losartan [Cozaar] 25 mg PO HS 01/14/24 [History] Magnesium Oil 1 applic TOPICAL HS 01/14/24 [History] Multivit-Min/Iron/Folic/Lutein [Centrum Silver Women Tablet] 1 tab PO DAILY 01/14/24 [History] [place]-3/Dha/Epa/Fish Oil [Fish Oil 1,000 mg Softgel] 1 cap PO HS 01/14/24 [ History] Psyllium Husk (with Sugar) [Metamucil Powder] 6 gm PO PC-SUPPER 01/14/24 [History] Selenium 200 mcg PO DAILY 01/14/24 [History] Turmeric Root Extract [Turmeric Curcumin] 500 mg PO DAILY 01/14/24 [History] atenoloL [Tenormin] 50 mg PO DAILY 01/14/24 [History] hydroCHLOROthiazide 12.5 mg PO DAILY 01/14/24 [History] Aspirin 81 mg PO HS 21 Days #21 tab 01/15/24 [Rx] Atorvastatin [Lipitor] 40 mg PO HS #30 tab 01/15/24 [Rx] Clopidogrel [Plavix] 75 mg PO DAILY #30 tab 01/15/24 [Rx] Follow up Appointment(s)/Referral(s): Caitlin Sena FNPBC [REFERRING] - 1-2 days Sammy Wong MD [Medical Doctor] - 2 Weeks (Neurologist) Activity/Diet/Wound Care/Special Instructions: heart healthy diet activity is restricted till you see your doctor Continue with dual antiplatelet therapy with aspirin and Plavix for 21 days. Then stop taking aspirin and continue with Plavix thereafter Discharge Disposition: HOME SELF-CARE
== END 2024-01-15 19:00 | disposition home or self-care (01) ==
LOC: EC 03:03 → 6NMEDSUR 03:32
PROVIDERS: ADMIT Hospitalist; ATTEND Hospitalist
DX: G45.9 Transient cerebral ischemic attack, unspecified (principal); I10 Essential (primary) hypertension; E78.5 Hyperlipidemia, unspecified; T46.6X6A Underdosing of antihyperlipidemic and antiarteriosclerotic drugs, initial encounter; E03.9 Hypothyroidism, unspecified; E66.9 Obesity, unspecified; Z68.29 Body mass index [BMI] 29.0-29.9, adult; F41.9 Anxiety disorder, unspecified; F32.A Depression, unspecified; W18.30XA Fall on same level, unspecified, initial encounter; Z79.82 Long term (current) use of aspirin; Z79.890 Hormone replacement therapy; Z79.899 Other long term (current) drug therapy
CPT/HCPCS: 99285; 36415; 93005; 93306; 97161; 97165; 92610; 92523; 80061; 80053; 82550; 84484; 85025; 85610; 85730; 83036; 93880; G0378 ×2